=== PATIENT | male | born 1970 | race Caucasian/White ===

== ENCOUNTER 2019-04-24 04:59 | Emergency (ER) | payer SELFPAY ==
[~2019-04-24] VITALS: Ht 175.3 cm; Wt 127.3 kg
[2019-04-24] MEDS ORDERED: MULTIVIT INFUSN,ADULT 4,VIT K 10 ML, THIAMINE INJ 100 MG, FOLIC ACID INJ 1 MG in IV NOR... IV ONE (05:30)
[2019-04-24 05:32] LABS: BASO # 0.1 x10^3/uL (0.0-0.2); BASO % 1 % (0-3); EOS % 0 % (0-3); HEMOGLOBIN 14.3 g/dL (13.0-17.5); LYMPH # 1.8 x10^3/uL (1.0-4.8); LYMPH % 18 % (24-48); MEAN CORPUSCULAR HEMOGLOBIN 31 pg (25-35); MEAN CORPUSCULAR HGB CONC 35 g/dL (31-37); MEAN CORPUSCULAR VOLUME 89 fL (79-100); MONO # 1.1 x10^3/uL (0.0-1.1); MONO % 11 % (0-9); NEUT # 7.3 x10^3/uL (1.8-7.7); NEUT % 71 % (31-73); PLATELET COUNT 290 x10^3/uL (140-400); RED CELL DISTRIBUTION WIDTH 13.5 % (11.5-14.5); WHITE BLOOD COUNT 10.3 x10^3/uL (4.0-11.0)
--- NOTE | 2019-04-24 05:45 | RAD ---
PORTABLE CHEST 1V Clinical History: Alcohol withdrawal Technique: AP view of the chest was obtained at 04/24/2019 5:06 AM. Comparison: None. Findings: The cardiomediastinal silhouette is normal. The pulmonary vasculature is normal. The lungs and pleural margins are clear. Impression: No evidence of an acute cardiopulmonary process. Electronically signed by: Teja Grey III, MD (04/24/2019 5:42 AM) [id number]
[2019-04-24 05:48] LABS: ALBUMIN 3.9 g/dL (3.4-5.0); CALCIUM 8.5 mg/dL (8.5-10.1); CREATININE 1.2 mg/dL (0.7-1.3); DIRECT BILIRUBIN 0.3 mg/dL (0.0-0.2); GFR 64.1; MAGNESIUM 1.3 mg/dL (1.8-2.4); TOTAL BILIRUBIN 0.7 mg/dL (0.2-1.0); TOTAL PROTEIN 6.4 g/dL (6.4-8.2)
[2019-04-24 05:49] LABS: PROTHROMBIN TIME PATIENT 13.8 SEC (11.7-14.0)
[2019-04-24 05:54] LABS: POTASSIUM 2.9 mmol/L (3.5-5.1)
--- NOTE | 2019-04-24 06:05 | PHYS DOC ---
Past Medical History Past Medical History: Alcoholism, Depression, Hypertension (RUPINDER ESTRADA DO) Additional Past Surgical Histo: Hand (RUPINDER ESTRADA DO) Additional Information: Nonsmoker Alcohol Use: Heavy Drug Use: None (RUPINDER ESTRADA DO) Adult General Chief Complaint Chief Complaint: ALCOHOL INTOXICATION HPI HPI Patient is a 49 year old male with history of alcoholism who presents by EMS with complaining of nausea and vomiting and chest pain. Patient states he was heavily drinking alcohol for the last 1 week and had 2 pints of alcohol yesterda y morning but didn't have any more alcohol since then. Patient complaining of nausea and vomiting, chest pain, numbness of all of his whole body. Patient states he was in his front yard and feeling he was going to and called 911. Patient states he has auditory and visual hallucinations without suicidal ideation and states he had a withdrawal seizure. Patient had 4 mg of IV Zofran given by EMS. Patient was very anxious at arrival to ER. (GUCCI PUENTE MD) Review of Systems Review of Systems Constitutional: Denies fever or chills [] Eyes: Denies change in visual acuity, redness, or eye pain [] HENT: Denies nasal congestion or sore throat [] Respiratory: Denies cough or shortness of breath [] Cardiovascular: No additional information not addressed in HPI [] GI: Denies abdominal pain, bloody stools or diarrhea reports nausea and vomiting[] : Denies dysuria or hematuria [] Musculoskeletal: Denies back pain or joint pain [] Integument: Denies rash or skin lesions [] Neurologic: Denies headache, focal weakness Endocrine: Denies polyuria or polydipsia [] All other systems were reviewed and found to be within normal limits, except as documented in this note. (GUCCI PUENTE MD) Current Medications Current Medications Current Medications Medications (Trade) Dose Ordered Sig/Minh Start Time Stop Time Status Last Admin Dose Admin Lorazepam (Ativan Inj) 2 mg 1X ONCE 04/24/19 07:00 04/24/19 07:01 Magnesium Sulfate 50 ml @ 25 mls/hr 1X ONCE 04/24/19 06:30 04/24/19 08:29 Multivitamins 10 ml/Thiamine HCl 100 mg/Folic Acid 1 mg/Sodium Chloride 1,011.2 ml @ 1,000 mls/ hr 1X ONCE 04/24/19 05:30 04/24/19 06:30 Potassium Chloride/Water 100 ml @ 100 mls/hr Q1H 04/24/19 06:30 04/24/19 08:29 (RUPINDER ESTRADA DO) Allergies Allergies Allergies Coded Allergies Type Severity Reaction Last Updated Verified No Known Drug Allergies 04/24/19 No (RUPINDER ESTRADA DO) Physical Exam Physical Exam Constitutional: Well nourished, moderate distress, non-toxic appearance. [] HENT: Normocephalic, atraumatic. Eyes: PERRLA, EOMI, conjunctiva normal, no discharge. [] Neck: Normal range of motion, no tenderness, supple, no stridor. [] Cardiovascular: Tachycardia, no murmur [] Lungs & Thorax: Bilateral breath sounds clear to auscultation [] Abdomen: Bowel sounds normal, soft, no tenderness, no masses, no pulsatile masses. [] Skin: Warm, dry, no erythema, no rash. [] Back: No tenderness, no CVA tenderness. [] Extremities: No tenderness, no cyanosis, no clubbing, ROM intact, no edema, tremor. [] Neurologic: Alert and oriented X 3, no focal deficits noted. [] Psychologic: Affect is agitated, mood normal. [] (GUCCI PUENTE MD) Physical Exam Constitutional: Well developed, well nourished, non-toxic appearance, disheveled HENT: Normocephalic, atraumatic, oropharynx moist Eyes: PERRL, EOMI, conjunctiva normal, no discharge, horizontal nystagmus Neck: Normal range of motion, no tenderness, supple Cardiovascular: Heart rate normal, regular rhythm Lungs & Thorax: Bilateral breath sounds clear to auscultation, no wheezing Abdomen: Soft, no tenderness Skin: Warm, dry, no erythema, no rash Extremities: No tenderness, ROM intact, no edema Neurologic: Alert and oriented X 3, normal motor function, normal sensory function, no focal deficits noted Psychologic: Affect agitated, judgment normal (RUPINDER ESTRADA DO) Current Patient Data Lab Values Laboratory Tests Test 04/24/19 05:10 White Blood Count 10.3 x10^3/uL (4.0-11.0) Red Blood Count 4.60 x10^6/uL (4.30-5.70) Hemoglobin 14.3 g/dL (13.0-17.5) Hematocrit 41.0 % (39.0-53.0) Mean Corpuscular Volume 89 fL (79-100) Mean Corpuscular Hemoglobin 31 pg (25-35) Mean Corpuscular Hemoglobin Concent 35 g/dL (31-37) Red Cell Distribution Width 13.5 % (11.5-14.5) Platelet Count 290 x10^3/uL (140-400) Neutrophils (%) (Auto) 71 % (31-73) Lymphocytes (%) (Auto) 18 % (24-48) L Monocytes (%) (Auto) 11 % (0-9) H Eosinophils (%) (Auto) 0 % (0-3) Basophils (%) (Auto) 1 % (0-3) Neutrophils # (Auto) 7.3 x10^3/uL (1.8-7.7) Lymphocytes # (Auto) 1.8 x10^3/uL (1.0-4.8) Monocytes # (Auto) 1.1 x10^3/uL (0.0-1.1) Eosinophils # (Auto) 0.0 x10^3/uL (0.0-0.7) Basophils # (Auto) 0.1 x10^3/uL (0.0-0.2) Prothrombin Time 13.8 SEC (11.7-14.0) Prothrombin Time INR 1.1 (0.8-1.1) Activated Partial Thromboplast Time 24 SEC (24-38) Sodium Level 135 mmol/L (136-145) L Potassium Level 2.9 mmol/L (3.5-5.1) *L Chloride Level 95 mmol/L (98-107) L Carbon Dioxide Level 20 mmol/L (21-32) L Anion Gap 20 (6-14) H Blood Urea Nitrogen 18 mg/dL (8-26) Creatinine 1.2 mg/dL (0.7-1.3) Estimated GFR (Cockcroft-Gault) 64.1 Glucose Level 181 mg/dL (70-99) H Calcium Level 8.5 mg/dL (8.5-10.1) Magnesium Level 1.3 mg/dL (1.8-2.4) L Total Bilirubin 0.7 mg/dL (0.2-1.0) Direct Bilirubin 0.3 mg/dL (0.0-0.2) H Aspartate Amino Transferase (AST) 33 U/L (15-37) Alanine Aminotransferase (ALT) 35 U/L (16-63) Alkaline Phosphatase 87 U/L (46-116) Creatine Kinase 425 U/L (39-308) H Troponin I Quantitative < 0.017 ng/mL (0.000-0.055) EN-Ewl-B-Type Natriuretic Peptide 58 pg/mL (0-124) Total Protein 6.4 g/dL (6.4-8.2) Albumin 3.9 g/dL (3.4-5.0) Lipase 91 U/L (73-393) Ethyl Alcohol Level 50 mg/dL (0-10) H Laboratory Tests 04/24/19 05:10 Laboratory Tests 04/24/19 05:10 (RUPINDER ESTRADA DO) EKG EKG EKG interpreted by me. EKG at 05 that showed sinus tachycardia rate 114, PVCs, left axis deviation, no acute distress and T-wave elevation. (GUCCI PUENTE MD) Radiology/Procedures Radiology/Procedures [facility] [address] [place], [place] [id number] IMAGING REPORT Signed PATIENT: SO FERNANDEZ ACCOUNT: [id number] : 1970 LOCATION: ER AGE: 49 SEX: M EXAM STATUS: PRE ER ORD. PHYSICIAN: GUCCI PUENTE MD REASON: alcohol withdrawal PROCEDURE: PORTABLE CHEST 1V PORTABLE CHEST 1V Clinical History: Alcohol withdrawal Technique: AP view of the chest was obtained at 04/24/2019 5:06 AM. Comparison: None. Findings: The cardiomediastinal silhouette is normal. The pulmonary vasculature is normal. The lungs and pleural margins are clear. Impression: No evidence of an acute cardiopulmonary process. Electronically signed by: Nikolai Castellanos III, MD (04/24/2019 5:42 AM) [id number] DICTATED and SIGNED BY: NIKOLAI CASTELLANOS III, MD DATE: 04/24/19 05 (GUCCI PUENTE MD) Course & Med Decision Making Course & Med Decision Making Pertinent Labs and Imaging studies are pending. Evaluation of patient in ER showed 49-year-old male patient with history of alcoholism brought in by EMS because of alcohol withdrawal and nausea and vomiting and chest pain. Patient treated with Ativan with improvement of his condition. Patient had potassium of 2.9 and magnesium of 1.3. UDS is pending. Cardiac enzymes was negative. Sign out given to at 0600 for further evaluation and final disposition. Discussed current findings and plan with patient and family, who acknowledge understanding and agreement. (GUCCI PUENTE MD) Course & Med Decision Making Signout received from Dr. Puente for patient with history of ETOH withdrawal wit h history of delirium tremens. Labs reviewed. Hypokalemia and hypomagnesemia addressed. Banana bag given. CXR reviewed. Patient seen and evaluated by myself. Patient requiring admission for further evaluation and treatment. Discussed with Dr. Mendez (hospitalist) who is in agreement with admission. Discussed findings and plan with patient, who acknowledges understanding and agreement. (RUPINDER ESTRADA DO) Dragon Disclaimer Dragon Disclaimer This electronic medical record was generated, in whole or in part, using a voice recognition dictation system. (GUCCI PUENTE MD) Departure Departure Impression: Primary Impression: Alcohol withdrawal Additional Impressions: Hypomagnesemia Hypokalemia Disposition: ADMITTED INPATIENT Admitting Physician: LILIAN Mcguire) (RUPINDER ESTRADA DO) Condition: GUARDED Critical Care Time Critical care time was 30 minutes which includes time at bedside, spent in discussion of patient's care with specialists and/or family members, with interpretation of laboratory and/or radiological studies and is exclusive of procedures. (RUPINDER ESTRADA DO) Problem Qualifiers Primary Impression: Alcohol withdrawal Complication of substance-induced condition: with delirium Qualified Codes: F10.231 - Alcohol dependence with withdrawal delirium GUCCI PUENTE MD Apr 24, 2019 06:05 RUPINDER ESTRADA DO Apr 24, 2019 06:32
[2019-04-24] MEDS ORDERED: MAGNESIUM SULFATE 2GM 50 ML IV ONE (06:30)
[2019-04-24] MEDS ORDERED: ONDANSETRON PF 4 MG/2 ML VIAL. IV PRN (06:30)
[2019-04-24] MEDS: POTASSIUM CHLORIDE 10MEQ 100 ML IV SCH ×2 (07:14→08:27)
[2019-04-24 07:54] LABS: BILIRUBIN,URINE NEGATIVE (NEG); CLARITY,URINE CLEAR; COLOR,URINE YELLOW; NITRITE,URINE NEGATIVE (NEG); PROTEIN,URINE NEGATIVE (NEG-TRACE); UROBILINOGEN,URINE 0.2 mg/dL (0.2 mg/dL)
[2019-04-24 07:58] LABS: BARBITURATES NEG (NEG); BENZODIAZEPINES NEG (NEG); CANNABINOIDS POS (NEG); COCAINE NEG (NEG); METHADONE NEG (NEG); OPIATES NEG (NEG); PHENCYCLIDINE NEG (NEG)
[2019-04-24 07:59] LABS: AMPHETAMINE/METHAMPHETAMINE NEG (NEG)
[2019-04-24 08:09] LABS: BACTERIA,URINE 0 /HPF (0-FEW); RBC,URINE 0 /HPF (0-2); SQUAMOUS EPITHELIAL CELL,UR FEW /LPF; WBC,URINE 0 /HPF (0-4)
[2019-04-24 09:24] VITALS: BP 136/91
--- NOTE | 2019-04-24 14:58 | EKG ---
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
== END 2019-04-24 10:30 | disposition left against medical advice (07) ==
LOC: ER 04:59
DX: F10.231 Alcohol dependence with withdrawal delirium (principal); E83.42 Hypomagnesemia; E87.6 Hypokalemia; R11.2 Nausea with vomiting, unspecified; R07.89 Other chest pain; F32.9 Major depressive disorder, single episode, unspecified; I10 Essential (primary) hypertension; Z98.890 Other specified postprocedural states
CPT/HCPCS: 36415; 71045; 80048; 80076; 80307; 81001; 82550; 83690; 83735; 83880; 84484; 85025; 85610; 85730; 93005; 96365; 96366; 96367; 96368; 96375; 96376; 99285; G0480; J2060; J3475; J3480; J7030